=== PATIENT | male | born 1980 | race Two or more races ===

== ENCOUNTER 2025-03-02 19:32 | Emergency (ER) | payer MEDICAID ==
[~2025-03-02] VITALS: Ht 185.4 cm; Wt 84.8 kg
[2025-03-02 21:32] LABS: PLATELET COUNT (AUTO) 182 K/uL (150-450); RED BLOOD CELL COUNT(AUTO) 4.98 MIL/uL (4.5-6.0); RED CELL DISTRIBUTION WIDTH 12.8 % (11.5-15.0); WHITE BLOOD COUNT (AUTO) 4.4 K/uL (4.3-11.0)
[2025-03-02 21:40] LABS: CALCIUM, SERUM 8.6 mg/dL (8.5-10.1); CREATININE 0.9 mg/dL (0.6-1.3); SODIUM SERUM 141.0 mmol/L (136-145); UREA NITROGEN, BLOOD 11.0 mg/dL (7-18)
[2025-03-02] MEDS: IV NS 0.9% 1,000 ML BAG IV ONE (21:44)
[2025-03-02 21:46] LABS: ASPARTATE AMINOTRANSFERASE 16.0 U/L (15-37); TOTAL PROTEIN, SERUM 7.9 g/dL (6.4-8.2)
[2025-03-02] MEDS ORDERED: IOHEXOL-300 100 ML VIAL IV ONE (22:00)
[2025-03-02] MEDS ORDERED: KETOROLAC TROMETHAMINE 15 MG/ML VIAL ONE (23:10)
[2025-03-02] MEDS: KETOROLAC TROMETHAMINE 15 MG/ML VIAL IV ONE (23:12)
[2025-03-02 23:53] LABS: APPEARANCE,URINE CLEAR (CLEAR); BLOOD, URINE NEGATIVE Ery/uL (NEGATIVE); LEUKOCYTE ESTERASE ,URINE NEGATIVE (NEGATIVE); NITRITE, URINE NEGATIVE (NEGATIVE); UGLUCOSE NEGATIVE (NEGATIVE)
[2025-03-03] MEDS ORDERED: IBUP-1490 PO (00:22)
[2025-03-03 00:37] VITALS: BP 138/72; TEMP 98; O2SAT 98
== END 2025-03-03 00:37 | disposition home or self-care (01) ==
LOC: ER 19:37
DX: N50.812 Left testicular pain (principal); R36.1 Hematospermia; R10.2 Pelvic and perineal pain; Z88.0 Allergy status to penicillin
CPT/HCPCS: 99285; 74177; 96374; 96361; 76870; 85025; 80048; 87086; 83690; 80076; 81003; 36415; J1885; Q9967